=== PATIENT | male | born 1975 | race Caucasian/White ===

== ENCOUNTER 2017-03-12 20:59 | Emergency (ER) | payer SELFPAY | END 2017-03-13 02:45 | disposition home or self-care (01) | LOC: ER 20:59 | DX: R10.11 Right upper quadrant pain (principal); M54.9 Dorsalgia, unspecified; I10 Essential (primary) hypertension; Z79.899 Other long term (current) drug therapy; Z88.5 Allergy status to narcotic agent | CPT/HCPCS: 36415; 96374; 96375; 96376; Q9967 ==